=== PATIENT | female | born 1980 | race Caucasian/White ===

== ENCOUNTER 2016-09-17 08:48 | Emergency (ER) | payer BC ==
[2016-09-17 09:04] VITALS: BP 119/68
--- NOTE | 2016-09-17 09:44 | UC ---
Throat Pain/Nasal Warren HPI - HPI Summary HPI Summary: "I think I may have strep ... " Headache, bilateral ear pain, fever (tmax 101), "a little bit" nasal congestion, sore throat, painful swallowing, nausea without vomiting, myalgias, chills/hot, and tired worsening since last night. Tonsils erythemic and right tonsil exudative and swollen. Patient's son was treated for strep throat last week. 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 PCP Erich OCHOA. onset of sx was sudden last night. denies . - History of Current Complaint Chief Complaint: UCGeneralIllness Stated Complaint: SORE THROAT,FEVER Time Seen by Provider: 09/17/16 09:17 Hx Last Menstrual Period: 09/03/16 - Allergies/Home Medications Allergies/Adverse Reactions: Allergies Allergy/AdvReac Type Severity Reaction Status Date / Time Seasonal Allergies Allergy "Bronchial Uncoded 09/17/16 09:05 Asthma" Home Medications: Home Medications Albuterol 2.5MG/3ML (0.083%)* [Ventolin 2.5 MG/3 ML NEB.ALECIA*] 2.5 mg INH Q6H PRN 09/17/16 [History Confirmed 09/17/16] [id number] [Excedrin Extra Strength] 2 tab PO Q12H PRN 09/17 [History Confirmed 09/17/16] PMH/Surg Hx/FS Hx/Imm Hx Previously Healthy: Yes Endocrine History Of: Reports: Thyroid Disease - Thyroid Storm Denies: Diabetes Cardiovascular History Of: Denies: Cardiac Disorders, Hypertension Respiratory History Of: Reports: Asthma Denies: COPD GI/ History Of: Denies: Ulcer - Surgical History Surgical History: Yes Surgery Procedure, Year, and Place: essure procedure 2012 - Family History Known Family History: Positive: Hypertension, Other - no skin disorders - Social History Alcohol Use: Rare Substance Use Type: None Smoking Status (MU): Former Smoker Have You Smoked in the Last Year: No - Immunization History Most Recent Influenza Vaccination: Current for Season Review of Systems Constitutional: Chills, Fatigue Skin: Negative Eyes: Negative ENT: Sore Throat, Ear Ache Respiratory: Negative Cardiovascular: Negative Gastrointestinal: Negative Genitourinary: Negative Motor: Negative Neurovascular: Negative Musculoskeletal: Negative Neurological: Negative Psychological: Negative All Other Systems Reviewed And Are Negative: Yes Physical Exam Triage Information Reviewed: Yes Appearance: Well-Appearing, No Pain Distress, Well-Nourished Vital Signs: Initial Vital Signs Temp 97.6 F 09/17/16 08:58 Pulse 96 09/17/16 08:58 Resp 16 09/17/16 08:58 BP 119/68 09/17/16 08:58 Pulse Ox 99 09/17/16 08:58 Vital Signs Reviewed: Yes Eye Exam: Normal ENT: Positive: Normal ENT inspection, Pharyngeal erythema, TMs normal Dental Exam: Normal Neck exam: Normal Neck: Positive: Supple, Nontender, Enlarged Nodes @ - b/l ant cx mild Respiratory Exam: Normal Respiratory: Positive: Lungs clear, Normal breath sounds, No respiratory distress, No accessory muscle use Cardiovascular Exam: Normal Cardiovascular: Positive: RRR, No Murmur, Pulses Normal, Brisk Capillary Refill Abdominal Exam: Normal Abdomen Description: Positive: Nontender, Soft Musculoskeletal Exam: Normal Neurological Exam: Normal Psychological Exam: Normal Skin Exam: Normal Throat Pain/Nasal Course/Dx - Course Course Of Treatment: + rapid strep - Differential Dx/Diagnosis Differential Diagnosis/HQI/PQRI: Influenza, Otitis Media, Peritonsillar Abscess , Pharyngitis, Tonsillitis Provider Diagnoses: Strep pharyngitis Discharge - Discharge Plan Condition: Stable Disposition: HOME Prescriptions: Amoxicillin (*) 875 mg PO BID #20 tab Patient Education Materials: Strep Throat (ED) Referrals: DON Chowdhury [Primary Care Provider] - 3 Days Additional Instructions: Take a probiotic every day while taking the antibiotic. Ibuprofen for pain.
== END 2016-09-17 09:54 | disposition home or self-care (01) ==
LOC: UCCORT 08:48
DX: J02.0 Streptococcal pharyngitis (principal); Z87.891 Personal history of nicotine dependence
CPT/HCPCS: 87651; 99212; G0463

== ENCOUNTER 2016-10-14 14:06 | Emergency (ER) | payer BC ==
[2016-10-14 14:27] VITALS: BP 130/78
--- NOTE | 2016-10-14 15:43 | UC ---
Throat Pain/Nasal Warren HPI - HPI Summary HPI Summary: YESTERDAY HAD FEVER AND BODY ACHES. STEEP DAUGHTER HAS HAD DX OF STREP RECENTLY. THEY HAVE BEEN "PASSING STREP THROAT BACK & FORTH" - History of Current Complaint Chief Complaint: UCRespiratory Stated Complaint: FEVER,SORE THROAT,ACHY Time Seen by Provider: 10/14/16 14:49 Hx Obtained From: Patient Hx Last Menstrual Period: 10/03/16 Onset/Duration: Gradual Onset, Lasting Days, Still Present Severity: Moderate Cough: None Associated Signs & Symptoms: Positive: Dysphagia, Hoarseness - Epiglottits Risk Factors Epiglottis Risk Factors: Negative - Allergies/Home Medications Allergies/Adverse Reactions: Allergies Allergy/AdvReac Type Severity Reaction Status Date / Time No Known Allergies Allergy Verified 10/14/16 14:28 Home Medications: Home Medications Acetaminophen [Acetaminophen Extra Stren] 1,000 mg PO PRN 10/14/16 [History] Albuterol HFA INHALER* [Ventolin HFA Inhaler*] 2 puff INH Q4H PRN 10/14/16 [ History Confirmed 10/14/16] PMH/Surg Hx/FS Hx/Imm Hx Previously Healthy: Yes Endocrine History Of: Reports: Thyroid Disease - Thyroid Storm Denies: Diabetes Cardiovascular History Of: Denies: Cardiac Disorders, Hypertension Respiratory History Of: Reports: Asthma Denies: COPD GI/ History Of: Denies: Ulcer - Surgical History Surgical History: Yes Surgery Procedure, Year, and Place: essure procedure 2012 - Family History Known Family History: Positive: Hypertension, Other - no skin disorders - Social History Lives: With Family Alcohol Use: Rare Substance Use Type: None Smoking Status (MU): Former Smoker Type: Cigarettes Length of Time of Smoking/Using Tobacco: approx 10 yrs on/off Have You Smoked in the Last Year: No When Did the Patient Quit Smoking/Using Tobacco: 2012 - Immunization History Most Recent Influenza Vaccination: Current for 2016/2016 Season Review of Systems Constitutional: Fever, Chills Skin: Negative Eyes: Negative ENT: Sore Throat Respiratory: Cough Cardiovascular: Negative Gastrointestinal: Negative Genitourinary: Negative Motor: Negative Neurovascular: Negative Musculoskeletal: Negative Neurological: Negative Psychological: Negative All Other Systems Reviewed And Are Negative: Yes Physical Exam Triage Information Reviewed: Yes Appearance: No Pain Distress, Well-Nourished, Ill-Appearing - MILD Vital Signs: Initial Vital Signs Temp 98.3 F 10/14/16 14:20 Pulse 102 10/14/16 14:20 Resp 16 10/14/16 14:20 BP 130/78 10/14/16 14:20 Pulse Ox 99 10/14/16 14:20 Vital Signs Reviewed: Yes Eye Exam: Normal ENT: Positive: Hearing grossly normal, Pharyngeal erythema, Tonsillar swelling, Tonsillar exudate Dental Exam: Normal Neck exam: Normal Neck: Positive: Supple, Nontender, No Lymphadenopathy Respiratory Exam: Normal Respiratory: Positive: Chest non-tender, Lungs clear, Normal breath sounds, No respiratory distress, No accessory muscle use Cardiovascular Exam: Normal Cardiovascular: Positive: RRR, No Murmur, Pulses Normal, Brisk Capillary Refill Abdominal Exam: Normal Abdomen Description: Positive: Nontender, No Organomegaly Musculoskeletal Exam: Normal Musculoskeletal: Positive: Strength Intact, ROM Intact Neurological Exam: Normal Neurological: Positive: Alert, Muscle Tone Normal Psychological Exam: Normal Psychological: Positive: Normal Response To Family Skin Exam: Normal Throat Pain/Nasal Course/Dx - Differential Dx/Diagnosis Differential Diagnosis/HQI/PQRI: Pharyngitis, Sinusitis, Tonsillitis, URI Provider Diagnoses: STREP TONSILLITIS Discharge - Discharge Plan Condition: Stable Disposition: HOME Prescriptions: Amoxicillin/Clavulanate TAB* [Augmentin TAB 875*] 875 mg PO BID #20 tab Patient Education Materials: Strep Throat (ED) Referrals: DON Chowdhury [Primary Care Provider] -
== END 2016-10-14 15:40 | disposition home or self-care (01) ==
LOC: UCCORT 14:06
DX: J03.00 Acute streptococcal tonsillitis, unspecified (principal); J45.909 Unspecified asthma, uncomplicated; Z87.891 Personal history of nicotine dependence
CPT/HCPCS: 87651; 99211; G0463

== ENCOUNTER 2018-02-09 21:01 | Emergency (ER) | payer BC ==
[2018-02-09 21:16] VITALS: BP 117/67
[2018-02-09] MEDS ORDERED: Tetracaine 0.5% OPTH.SOL 4 ML* 1 DROP BTL ONE (21:33)
[2018-02-09] MEDS ORDERED: Fluorescein Sod TOPICAL 0.6* 0.6 MG TEST OPHTHALMIC ONE ×2 (21:33→21:34)
--- NOTE | 2018-02-09 21:53 | UC ---
Eye Complaint HPI - HPI Summary HPI Summary: got anti lice generic shampoo in her eye, with contact lens in place, cleaned contact and then replaced it in her eye the following morning some blurring of the vision noted - History of Current Complaint Chief Complaint: UCEye Stated Complaint: LEFT EYE COMPLAINT - CHEMICAL Time Seen by Provider: 02/09/18 21:32 Hx Obtained From: Patient Hx Last Menstrual Period: 02/05/18 ?: No Onset/Duration: Sudden Onset Timing: Constant Severity Initially: Moderate Severity Currently: Moderate Pain Intensity: 7 Location of Injury: Conjunctiva Character: Throbbing Aggravating Factor(s): Contact Lens Associated Signs And Symptoms: Positive: Vision Impairment Left - Risk Factors Penetrating Injury Risk Factor: Negative Globe Rupture Risk Factors: Negative Acute Glaucoma Risk Factors: Negative - Allergies/Home Medications Allergies/Adverse Reactions: Allergies Allergy/AdvReac Type Severity Reaction Status Date / Time No Known Allergies Allergy Verified 10/14/16 14:28 Home Medications: Home Medications Ibuprofen 600 mg PO Q8H 02/09/18 [History Confirmed 02/09/18] Levothyroxine Sodium 25 mcg PO DAILY 02/09/18 [History Confirmed 02/09/18] PMH/Surg Hx/FS Hx/Imm Hx Previously Healthy: Yes - Surgical History Surgical History: Yes Surgery Procedure, Year, and Place: essure procedure 2012 - Family History Known Family History: Positive: Hypertension, Other - no skin disorders - Social History Alcohol Use: Rare Substance Use Type: None Smoking Status (MU): Former Smoker Type: Cigarettes Length of Time of Smoking/Using Tobacco: approx 10 yrs on/off Have You Smoked in the Last Year: No When Did the Patient Quit Smoking/Using Tobacco: 2012 - Immunization History Most Recent Influenza Vaccination: Current for Season Review of Systems Constitutional: Negative Skin: Negative Eyes: Negative ENT: Negative Respiratory: Negative Cardiovascular: Negative Gastrointestinal: Negative Genitourinary: Negative Motor: Negative Neurovascular: Negative Musculoskeletal: Negative Neurological: Negative Psychological: Negative All Other Systems Reviewed And Are Negative: Yes Physical Exam Triage Information Reviewed: Yes Appearance: Well-Appearing Vital Signs: Initial Vital Signs Temp 37.5 C 02/09/18 21:10 Pulse 78 02/09/18 21:10 Resp 17 02/09/18 21:10 BP 117/67 02/09/18 21:10 Pulse Ox 100 02/09/18 21:10 Vital Signs Reviewed: Yes Eye Exam: Other - reddened left eye with conjunctival inflammation , left eye 20/25 right eye 20/30 Eyes: Positive: Conjunctiva Inflamed - conjunctival inflammation lateral portion of the eye ENT: Positive: Normal ENT inspection Neck exam: Normal Neck: Positive: Supple Respiratory Exam: Normal Eye Complaint Course/Dx - Differential Dx/Diagnosis Differential Diagnosis/HQI/PQRI: Conjunctivitis Provider Diagnoses: chemical conjunctivitis Discharge - Sign-Out/Discharge Documenting (check all that apply): Patient Departure - Discharge Plan Condition: Good Disposition: HOME Prescriptions: Prednisolone Acetate/Pf [Prednisolone Acet 1% Eye Drop] 5 ml LEFT EYE BID AC 5 Days #1 bottle Referrals: Terese Vallejo MD [Primary Care Provider] - Sebastian Patel MD [Medical Doctor] - Chica TOLLIVER,Kathy [Medical Doctor] - - Billing Disposition and Condition Condition: GOOD Disposition: Home
[2018-02-09] MEDS ORDERED: BSS OPTH.SOL* BTL OPHTHALMIC ONE (21:57)
[2018-02-09] MEDS ORDERED: Tetracaine 0.5% OPTH.SOL 4 ML* 1 DROP BTL LEFT EYE SCH (22:00)
== END 2018-02-09 22:18 | disposition home or self-care (01) ==
LOC: UCCORT 21:01
DX: H10.212 Acute toxic conjunctivitis, left eye (principal); Z87.891 Personal history of nicotine dependence
CPT/HCPCS: 99212; A9270-GY; G0463

== ENCOUNTER 2018-09-24 08:40 | Emergency (ER) | payer BC ==
[2018-09-24 08:55] VITALS: BP 124/69
--- NOTE | 2018-09-24 09:20 | UC ---
Respiratory Complaint HPI - HPI Summary HPI Summary: 37 yo female had what was probably the flu on 09/20, 09/21 (fever/chills/myalgias/ cough and runny nose) Had surgery on 09/21 despite this. Lap procedure (BTL) afebrile since then but now with wheezing/shext tightness using rescue inhaler and nebs takes MTX for RA but has not been on it last week or this week due to surgery - History of Current Complaint Chief Complaint: UCRespiratory Stated Complaint: COUGH,BI LAT EAR PAIN Time Seen by Provider: 09/24/18 08:51 Hx Obtained From: Patient Hx Last Menstrual Period: 09/23/18 Onset/Duration: Gradual Onset, Lasting Days Timing: Constant Severity Initially: Mild Severity Currently: Moderate Pain Intensity: 6 - pain at lap site when she coughs Character: Cough: Nonproductive Aggravating Factors: Deep Breaths, Recumbent Position Alleviating Factors: Bronchodilator Associated Signs And Symptoms: Positive: Wheezing, Nasal Congestion - Allergies/Home Medications Allergies/Adverse Reactions: Allergies Allergy/AdvReac Type Severity Reaction Status Date / Time No Known Allergies Allergy Verified 09/24/18 08:51 Home Medications: Home Medications Albuterol 2.5MG/3ML (0.083%)* [Ventolin 2.5 MG/3 ML NEB.ALECIA*] 2.5 mg INH Q4H PRN 09/24/18 [History Confirmed 09/24/18] Methotrexate TAB* 2.5 mg PO Q7D 09/24/18 [History Confirmed 09/24/18] PMH/Surg Hx/FS Hx/Imm Hx Previously Healthy: Yes - RA/ hoshimoto's Endocrine History: Thyroid Disease Respiratory History: Asthma, Pneumonia - Surgical History Surgical History: Yes Surgery Procedure, Year, and Place: essure procedure 2012. essure removal 2018 - Family History Known Family History: Positive: Hypertension, Other - no skin disorders, many autoimmune issues in FHx - Social History Alcohol Use: None Substance Use Type: None Smoking Status (MU): Former Smoker Type: Cigarettes Length of Time of Smoking/Using Tobacco: approx 10 yrs on/off Have You Smoked in the Last Year: No When Did the Patient Quit Smoking/Using Tobacco: 2012 - Immunization History Most Recent Influenza Vaccination: Current for Season Review of Systems All Other Systems Reviewed And Are Negative: Yes Constitutional: Positive: Negative, Other - no fever x 48-72 hours Skin: Positive: Negative Eyes: Positive: Negative ENT: Positive: Negative Respiratory: Positive: Cough Cardiovascular: Positive: Negative Gastrointestinal: Positive: Abdominal Pain - surgical site Genitourinary: Positive: Negative Motor: Positive: Negative Neurovascular: Positive: Negative Musculoskeletal: Positive: Negative Neurological: Positive: Negative Psychological: Positive: Negative Physical Exam Triage Information Reviewed: Yes Appearance: Well-Appearing, No Pain Distress, Well-Nourished Vital Signs: Initial Vital Signs Temp 98.6 F 09/24/18 08:49 Pulse 90 09/24/18 08:49 Resp 20 09/24/18 08:49 BP 124/69 09/24/18 08:49 Pulse Ox 99 09/24/18 08:49 Vital Signs Reviewed: Yes Eyes: Positive: Conjunctiva Clear ENT: Positive: Hearing grossly normal, Nasal congestion, TM bulging, Uvula midline. Negative: TM red, Tonsillar swelling, Tonsillar exudate, Trismus, Muffled voice, Hoarse voice, Sinus tenderness Neck: Positive: Supple, Nontender, No Lymphadenopathy Respiratory: Positive: No respiratory distress, No accessory muscle use, Wheezing - with forced expiration Cardiovascular: Positive: RRR, No Murmur Abdomen Description: Positive: Nontender. Negative: CVA Tenderness (R), CVA Tenderness (L) Bowel Sounds: Positive: Present Musculoskeletal: Positive: ROM Intact, No Edema Neurological: Positive: Alert Psychological Exam: Normal Skin Exam: Normal UC Diagnostic Evaluation - Laboratory O2 Sat by Pulse Oximetry: 99 - normal/not hypoxic Respiratory Course/Dx - Differential Dx/Diagnosis Provider Diagnosis: Bronchitis, acute, with bronchospasm, Serous otitis media Discharge - Sign-Out/Discharge Documenting (check all that apply): Patient Departure All imaging exams completed and their final reports reviewed: No Studies - Discharge Plan Condition: Stable Disposition: HOME Prescriptions: Amoxicillin PO (*) [Amoxicillin 875 MG (*)] 875 mg PO BID #14 tab predniSONE [Deltasone 20 MG TAB] 40 mg PO DAILY #10 tab Patient Education Materials: Acute Bronchitis (ED) Forms: *Work Release Referrals: Lupe Bach MD [Primary Care Provider] - 4 Days Additional Instructions: use your rescue inhaler or neb treatments as directed recheck for worsening symptoms - Billing Disposition and Condition Condition: STABLE Disposition: Home
== END 2018-09-24 09:28 | disposition home or self-care (01) ==
LOC: UCCORT 08:40
DX: J20.9 Acute bronchitis, unspecified (principal); H66.90 Otitis media, unspecified, unspecified ear; J45.909 Unspecified asthma, uncomplicated; M06.9 Rheumatoid arthritis, unspecified; Z79.899 Other long term (current) drug therapy; Z98.51 Tubal ligation status; Z87.891 Personal history of nicotine dependence
CPT/HCPCS: 99212; G0463